=== PATIENT | male | born 1985 | race Caucasian/White ===

== ENCOUNTER 2022-02-14 19:35 | Emergency (ER) | payer SELFPAY ==
[2022-02-14 19:39] VITALS: BMI 27.4
--- NOTE | 2022-02-14 19:47 | ECG_ITS ---
[facility] Test Date: 2022-02-14 Pat Name: Melo Schwarz Department: Room: Gender: Male Adjudication Specialist: : 1985 Requested By: Meghnaa Jacob Order Number: [id number] Simone MD: Silvestre Womack M.D. Measurements Intervals [place] Rate: 70 P: 44 MD: 152 QRS: 6 QRSD: 102 T: 31 QT: 355 QTc: 384 Interpretive Statements SINUS RHYTHM No previous ECG available for comparison Electronically Signed On 02-15-2022 18:11:46 CDT by Silvestre Womack M.D. [id number]
--- NOTE | 2022-02-14 19:50 | XRR_ITS ---
PROCEDURE INFORMATION: Exam: XR Chest Exam date and time: 02/14/2022 7:59 PM Age: 36 years old Clinical indication: Patient HX: Chest pain x3 wks wo trauma; RT shoulder pain; Additional info: Cp TECHNIQUE: Imaging protocol: Radiologic exam of the chest. Views: 1 view. COMPARISON: No relevant prior studies available. FINDINGS: Lungs: Unremarkable. No consolidation. Pleural spaces: Unremarkable. No pleural effusion. No pneumothorax. Heart/Mediastinum: Unremarkable. No cardiomegaly. Bones/joints: Unremarkable. XR/XR chest 1V portable [id number] IMPRESSION: No acute findings.
--- NOTE | 2022-02-14 19:59 | ED_ITS ---
HPI - Chest Pain General: Chief Complaint: Chest Pain Stated Complaint: cp, back pain, sob Time Seen by Provider: 02/14/22 19:50 Source: patient and family History of Present Illness: 36-year-old male with no prior history of coronary disease. He presents with right-sided chest discomfort, on and off for 3 weeks, but much worse the last 2 days. The pain is in his posterior right chest more so than anterior. It radiates into his scapula. He has some pain and weakness in his right arm as well. He has been short of breath, and generally weak. No fever. He notes a cough that began a couple of days ago. No fever. No leg swelling or calf pain that is new. He has leg cramps quite frequently he says MD complaint: chest pain Onset (ago): day(s) Timing of current episode: episodic Prior episodes: Yes Onset: during rest and after eating Pain location: substernal and right chest Pain radiation: back, right shoulder and right scapula Quality: aching and sharp Relieving factors: nothing Exacerbating factors: exertion and eating Associated symptoms: Reports dyspnea and nausea; Deny abdominal pain, fever(s), leg edema, palpitations or vomiting Review of Systems Const: Denies: fever(s) Eyes: Denies: change in vision ENMT: Denies: throat pain Card: Reports: chest pain; Denies: palpitations Resp: Reports: dyspnea and non-productive cough; Denies: productive cough GI: Reports: nausea; Denies: abdominal pain or vomiting Musc: Reports: back pain Skin/Breast: Denies: rash Physical Exam Const: GENERAL APPEARANCE: cooperative and well kempt; not frail appearing HENMT: COMMON NORMALS: normocephalic and atraumatic HEAD & SCALP: normocephalic and atraumatic Eye: COMMON NORMALS: Equal, round and reactive pupils present and EOMs intact bilaterally PUPIL: Yes Equal, round and reactive pupils present Neck/C-Spine: GENERAL: Yes trachea midline Chest: CHEST: Yes Symmetrical chest wall rise and Yes tenderness other (Posterior right chest wall) Resp: COMMON NORMALS: normal respiratory effort, No use of accessory muscles and clear to auscultation bilaterally AUSCULTATION: clear to auscultation bilaterally Cardio: COMMON NORMALS: regular rate and regular rhythm RATE: regular rate RHYTHM: regular rhythm GI: COMMON NORMALS: Normal to inspection, nondistended, normoactive bowel sounds present, Soft to palpation and non-tender PALPATION: Yes Soft to palpation : COMMON NORMALS: Yes no CVA tenderness BLADDER/KIDNEY EXAM: Yes no CVA tenderness Back/Pelvis: COMMON NORMALS: no CVA tenderness Extremity: COMMON NORMALS: normal to inspection Neuro: ANAND COMA SCALE: document GCS findings Anand coma scale eye opening: Spontaneous Anand coma scale verbal response: Orientated [place] coma scale motor response: Obey commands Anand coma scale total score: 15 Psych: APPEARANCE: Yes well kempt Course Vital Signs: Vital signs: Vital Signs Oxygen Delivery Me thod 02/14/22 19:39 MDM - Chest Pain Medical Decision Making This patient has essentially reproducible right-sided mid and upper chest pain. Not really flank pain. He is not overly short of breath. He is afebrile. His vitals are stable. He has mild thrombocytopenia. His BMP is normal. D-dimer is nondetectable. Troponin is 6, and did not change at 2 hours. EKG shows a sinus rhythm with normal axis and intervals. Rate is 70. SD is 152 QRS is 102. There are no acute ST changes. His lipase is slightly elevated. Because of the thrombocytopenia, and the ominous ill-defined nature of his pain, the patient underwent CT scan. CT of the chest is negative for acute findings. CT of the belly is negative as well. He is mildly improved after medication. He will be treated for musculoskeletal chest wall pain. Tick panel is sent, as the patient works outside given his thrombocytopenia. PCR for COVID is also pending. antigen testing was neg at home. Lab Data : 02/14/22 20:00 02/14/22 20:00 Radiology Impressions Chest X-Ray 02/14/22 19:50 IMPRESSION: No acute findings. Chest/Abdomen/Pelvis CT 02/14/22 21:21 IMPRESSION: No acute findings. IMPRESSION: No acute findings. Laboratory Results WBC 8.1 10^3/uL (4.0-10.0) 02/14/22 20:00 RBC 5.39 10^6/uL (4.1-5.3) H 02/14/22 20:00 Hgb 16.4 g/dL (11.7-16.6) 02/14/22 20:00 Hct 48.6 % (42.0-52.0) 02/14/22 20:00 MCV 90.2 fl (80-94) 02/14/22 20:00 MCH 30.4 pg (28.0-34.0) 02/14/22 20:00 MCHC 33.7 g/dL (30.0-36.0) 02/14/22 20:00 RDW 12.1 % (12.1-15.1) 02/14/22 20:00 Plt Count 99 10^3/cmm (130-400) L 02/14/22 20:00 MPV 12.5 fL (7.4-10.4) H 02/14/22 20:00 Neut % (Auto) 62.4 % 02/14/22 20:00 Lymph % (Auto) 24.2 % 02/14/22 20:00 [place] % (Auto) 9.7 % 02/14/22 20:00 Eos % (Auto) 2.6 % 02/14/22 20:00 Baso % (Auto) 0.7 % 02/14/22 20:00 Neut # (Auto) 5.04 10^3/uL (1.8-7.7) 02/14/22 20:00 Lymph # (Auto) 2.0 10^3/uL (0.8-4.8) 02/14/22 20:00 [place] # (Auto) 0.8 10^3/uL (0.2-0.9) 02/14/22 20:00 Eos # (Auto) 0.2 10^3/uL (0.0-0.8) 02/14/22 20:00 Baso # (Auto) 0.1 10^3/uL (0.0-0.1) 02/14/22 20:00 Nucleated RBC % (auto) 0 % 02/14/22 20:00 Nucleated RBCs # 0.0 /100WBC 02/14/22 20:00 PT 12.50 SECONDS (12.1-14.9) 02/14/22 20:00 INR 0.91 (0.8-1.2) 02/14/22 20:00 APTT 29.1 SECONDS (23.9-36.7) 02/14/22 20:00 D-Dimer <= 0.27 ug/mIFEU (0-0.59) 02/14/22 20:00 Sodium 140 mmol/L (136-145) 02/14/22 20:00 Potassium 4.3 mmol/L (3.5-5.1) 02/14/22 20:00 Chloride 104 mmol/L (98-107) 02/14/22 20:00 Carbon Dioxide 24 mmol/L (22-29) 02/14/22 20:00 Anion Gap 16.3 (5-19) 02/14/22 20:00 BUN 14 mg/dL (6-20) 02/14/22 20:00 Creatinine 1.1 mg/dL (0.7-1.2) 02/14/22 20:00 GFR Calculation 74.9 mL/min (90-130) L 02/14/22 20:00 Glucose 100 mg/dL (65-115) 02/14/22 20:00 Calculated Osmolality 291 mOsm/kg (285-295) 02/14/22 20:00 Calcium 9.6 mg/dL (8.5-10.5) 02/14/22 20:00 Total Bilirubin 0.3 mg/dL (0.15-1.2) 02/14/22 20:00 AST 18 U/L (0-40) 02/14/22 20:00 ALT 25 U/L (0-41) 02/14/22 20:00 Alkaline Phosphatase 69 U/L (40-130) 02/14/22 20:00 Creatine Kinase 72 U/L (39-308) 02/14/22 20:00 Troponin T Baseline 6 ng/L (0-15) 02/14/22 20:00 Troponin T 120 Minute 6.00 ng/L (0-15) 02/14/22 21:45 Delta Troponin T 0 ABS# (0-10) 02/14/22 21:45 NT-Pro-B Natriuret Pep 19 pg/mL (0-125) 02/14/22 20:00 Total Protein 7.6 g/dL (6.6-8.7) 02/14/22 20:00 Albumin 4.5 g/dL (3.5-5.2) 02/14/22 20:00 Globulin 3.1 g/dL (1.3-4.6) 02/14/22 20:00 Lipase 74 U/L (13-60) H 02/14/22 20:00 Urine Color Yellow (Yellow) 02/14/22 20:15 Urine Appearance Clear (CLEAR) 02/14/22 20:15 Urine pH 7 (5-7) 02/14/22 20:15 Ur Specific [place] 1.015 (1.005-1.030) 02/14/22 20:15 Urine Protein Neg (Negative) 02/14/22 20:15 Urine Glucose (UA) Norm (Normal) 02/14/22 20:15 Urine Ketones Negative (Negative) 02/14/22 20:15 Urine Blood Neg (Negative) 02/14/22 20:15 Urine Nitrate Negative (Negative) 02/14/22 20:15 Urine Bilirubin Neg (Negative) 02/14/22 20:15 Urine Urobilinogen Neg mg/dL (Negative) 02/14/22 20:15 Ur Leukocyte Esterase Negative (Negative) 02/14/22 20:15 Monoscreen Negative (Negative) 02/14/22 21:45 Discharge Plan Discharge Patient Disposition: Home Clinical Impression: Atypical chest pain, Thrombocytopenia Condition: Stable Prescriptions: New hydrocodone-acetaminophen 5-325 mg tablet 1 tab PO Q8H PRN (Reason: pain) Qty: 7 0RF Medrol (Sulaiman) 4 mg tablets,dose pack See Rx Instructions .ROUTE .COMPLEX Qty: 21 0RF Rx Instructions: orally per package directions doxycycline hyclate 100 mg capsule 100 mg PO Q12H 14 Days Qty: 28 0RF Discharge Orders: Discharge ED (Routine); Ordered 02/14/22 Ordered By: Abdirahman Shearer Discharge Diet: Advance as tolerated Discharge Activity: Increase activity as tolerated Patient Instructions: Thrombocytopenia (ED), Chest Wall Pain (ED) Activity Restrictions/Additional Instructions: Return for worsening pain despite treatment, worsening shortness of breath, fever greater than 100 despite antibiotics, any other concerning symptoms. Coding Level of Care Code ED District Sales Leader for Hollie Fwjuan Exam Comprehensive
[2022-02-14 20:10] LABS: Basophils # 0.1 10^3/uL (0.0-0.1); Basophils % 0.7 %; Eosinophils # 0.2 10^3/uL (0.0-0.8); Eosinophils % 2.6 %; Hematocrit 48.6 % (42.0-52.0); Hemoglobin 16.4 g/dL (11.7-16.6); Lymphocytes % 24.2 %; Mean Corpuscular HGB Conc 33.7 g/dL (30.0-36.0); Mean Corpuscular Hemoglobin 30.4 pg (28.0-34.0); Mean Corpuscular Volume 90.2 fl (80-94); Mean Platelet Volume 12.5 fL (7.4-10.4); Monocytes # 0.8 10^3/uL (0.2-0.9); Monocytes % 9.7 %; Neutrophils # 5.04 10^3/uL (1.8-7.7); Neutrophils % 62.4 %; Nucleated Red Blood Cells % 0 %; Platelet Count 99 10^3/cmm (130-400); Red Blood Count 5.39 10^6/uL (4.1-5.3); Red Cell Distribution Width 12.1 % (12.1-15.1); White Blood Count 8.1 10^3/uL (4.0-10.0)
[2022-02-14] MEDS: morphine 4 mg/mL SDV 1 mL IVP (20:12)
[2022-02-14] MEDS: sodium chloride 0.9% 1,000 ML 999 ML IV (20:12)
[2022-02-14] MEDS: ondansetron 2 mg/ML SDV 2 mL 4 MG IVP (20:12)
[2022-02-14 20:27] LABS: INR 0.91 (0.8-1.2); Partial Thromboplastin Time 29.1 SECONDS (23.9-36.7)
[2022-02-14 20:28] LABS: Add Urine Microscopic? NO; Charge for UA Resulting for Rev
[2022-02-14 20:29] LABS: Bilirubin Urine Neg (Negative); Blood Urine Neg (Negative); Glucose Urine UA Norm (Normal); Ketones Urine Negative (Negative); Leukocyte Esterase Urine Negative (Negative); Nitrate Urine Negative (Negative); Protein Urine Neg (Negative); Specific Gravity, Urine 1.015 (1.005-1.030); Urine Appearance Clear (CLEAR); Urine Color Yellow (Yellow); Urobilinogen Urine Neg (Negative); pH Urine 7 (5-7)
[2022-02-14 20:30] LABS: D Dimer <= 0.27 ug/mIFEU (0-0.59)
[2022-02-14 20:38] LABS: Troponin(5th) Baseline 6 ng/L (0-15)
[2022-02-14 20:52] LABS: Alanine Aminotransferase 25 U/L (0-41); Albumin Level 4.5 g/dL (3.5-5.2); Alkaline Phosphatase 69 U/L (40-130); Aspartate Amino Transferase 18 U/L (0-40); Blood Urea Nitrogen 14 mg/dL (6-20); Calcium 9.6 mg/dL (8.5-10.5); Carbon Dioxide 24 mmol/L (22-29); Chloride 104 mmol/L (98-107); Creatine Phosphokinase 72 U/L (39-308); Creatinine Clr Calc Pharmacy 104.2193; Globulin 3.1 g/dL (1.3-4.6); Glomerular Filtration Rate 74.9 mL/min (90-130); Glucose 100 mg/dL (65-115); Lipase 74 U/L (13-60); NT Pro B Type Natriuretic Pept 19 pg/mL (0-125); Osmolality Calculated 291 mOsm/kg (285-295); Sodium 140 mmol/L (136-145); Total Bilirubin 0.3 mg/dL (0.15-1.2); Total Protein 7.6 g/dL (6.6-8.7)
[2022-02-14 20:58] LABS: Anion Gap 16.3 (5-19); Potassium 4.3 mmol/L (3.5-5.1)
--- NOTE | 2022-02-14 21:21 | CTR_ITS ---
PROCEDURE INFORMATION: Exam: CTA Chest With Contrast Exam date and time: 02/14/2022 9:39 PM Age: 36 years old Clinical indication: Abdominal pain; Generalized; Chest pressure; Prior surgery; Surgery type: Cholecystectomy, appendectomy; Additional info: Chest and back pain, thrombocytopenia TECHNIQUE: Imaging protocol: Computed tomographic angiography of the chest with contrast. 3D rendering (Not supervised by radiologist): MIP and/or 3D reconstructed images were created by the technologist. Radiation optimization: All CT scans at this facility use at least one of these dose optimization techniques: automated exposure control; mA and/or kV adjustment per patient size (includes targeted exams where dose is matched to clinical indication); or iterative reconstruction. Contrast material: OMNI 350; Contrast volume: 60 ml; Contrast route: INTRAVENOUS (IV); COMPARISON: CR XR chest 1V portable [id number] 02/14/2022 7:59 PM RADIATION DOSE METRICS: Total DLP (mGy-cm): 1389.55 FINDINGS: Pulmonary arteries: Normal. No pulmonary emboli. Aorta: Unremarkable. No aortic aneurysm. No aortic dissection. Lungs: Posterior dependent atelectasis. No consolidation. No masses. Pleural spaces: Unremarkable. No pneumothorax. No pleural effusion. Heart: Unremarkable. No cardiomegaly. No pericardial effusion. Lymph nodes: Unremarkable. No enlarged lymph nodes. Bones/joints: Unremarkable. No acute fracture. Soft tissues: Unremarkable. PROCEDURE INFORMATION: Exam: CT Abdomen And Pelvis With Contrast Exam date and time: 02/14/2022 9:39 PM Age: 36 years old Clinical indication: Abdominal pain; Generalized; Chest pressure; Prior surgery; Surgery type: Cholecystectomy, appendectomy; Additional info: Chest and back pain, thrombocytopenia TECHNIQUE: Imaging protocol: Computed tomography of the abdomen and pelvis with contrast. Radiation optimization: All CT scans at this facility use at least one of these dose optimization techniques: automated exposure control; mA and/or kV adjustment per patient size (includes targeted exams where dose is matched to clinical indication); or iterative reconstruction. Contrast material: OMNI 350; Contrast volume: 60 ml; Contrast route: INTRAVENOUS (IV); COMPARISON: CR XR chest 1V portable [id number] 02/14/2022 7:59 PM RADIATION DOSE METRICS: Total DLP (mGy-cm): 1389.55 FINDINGS: Liver: Normal. No mass. Gallbladder and bile ducts: Cholecystectomy. No ductal dilation. Pancreas: Normal. No ductal dilation. Spleen: Normal. No splenomegaly. Adrenal glands: Normal. No mass. Kidneys and ureters: Normal. No hydronephrosis. Stomach and bowel: Unremarkable. No obstruction. No mucosal thickening. Appendix: Appendectomy. Intraperitoneal space: Unremarkable. No free air. No significant fluid collection. Vasculature: Unremarkable. No abdominal aortic aneurysm. Lymph nodes: Unremarkable. No enlarged lymph nodes. Urinary bladder: Unremarkable as visualized. Reproductive: Unremarkable as visualized. Bones/joints: No acute fracture. Soft tissues: Unremarkable. CT/CT angio chest w abd pel w con IMPRESSION: No acute findings. IMPRESSION: No acute findings.
[2022-02-14] MEDS: iohexol 350 mg/mL 100 mL Btl 60 ML IV (21:52)
[2022-02-14] MEDS: fentaNYL 50 mcg/mL INJ 2mL 100 MCG IVP (21:59)
--- NOTE | 2022-02-14 22:00 | ECG_ITS ---
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 Measurements Intervals [place] Rate: 53 P: -3 MT: 159 QRS: 28 QRSD: 110 T: 38 QT: 410 QTc: 385 Interpretive Statements SINUS BRADYCARDIA No previous ECG available for comparison Electronically Signed On 02-15-2022 18:14:05 CDT by Silvestre Womack M.D. [id number]
[2022-02-14 22:32] LABS: Monoscreen Negative (Negative)
[2022-02-14 22:58] LABS: Troponin 5 2HR Delta 0 ABS# (0-10)
[2022-02-14] MEDS: ketorolac 30 mg/mL INJ 15 MG IVP (23:03)
[2022-02-16 14:17] LABS: Lyme AB Screen <0.90 index
[2022-02-20 21:34] LABS: E. Chaffeensis AB IGG <1:64; E. Chaffeensis AB IGM <1:20
[2022-02-22 17:38] LABS: RMSF IGG NOT DETECTED; RMSF IGM NOT DETECTED
== END 2022-02-14 23:42 | disposition home or self-care (01) ==
PROVIDERS: Emergency Provider Emergency Medicine
DX: R07.89 Other chest pain (principal); D69.6 Thrombocytopenia, unspecified
CPT/HCPCS: 71045; 71275; 74177; 80053; 81003; 82550; 83690; 83880; 84484; 85025; 85378; 85610; 85730; 86308; 86618; 86666; 86757; 93005; 96361; 96374; 96375; 99285; J1885; J2270; J2405; J3010; J7030; Q9967